=== PATIENT | male | born 2000 | race African-American/Black ===

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

== ENCOUNTER 2023-04-17 18:06 | Emergency (ER) | payer BC, OTHER ==
[2023-04-17 18:19] VITALS: BP 123/68; O2SAT 100
--- NOTE | 2023-04-17 18:34 | ED Physician Documentation ---
PD HPI LOWER EXT INJURY - Stated complaint Stated Complaint: L FOOT BLISTERS - Chief complaint Chief Complaint: Ext Problem - History obtained from History obtained from: Patient - Additional information Additional information: Otherwise healthy 23-year-old gentleman works at [employer]. 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 Over the last couple weeks he has developed a blister on his left heel that is not healing and he would like to know how to take care of it. PD PAST MEDICAL HISTORY - Past Medical History Respiratory: Asthma - Past Surgical History Past Surgical History: Yes Ortho: Rotator cuff repair - Present Medications Home Medications: Ambulatory Orders Medication Instructions Recorded Confirmed Albuterol Sulfate [Albuterol 1 inhaler INH Q3HR PRN 10/16/14 04/17/23 Sulfate Hfa] - Allergies Allergies/Adverse Reactions: Allergies Allergy/AdvReac Type Severity Reaction Status Date / Time nuts Allergy Respiratory Uncoded 04/17/23 18:18 - Social History Does the pt smoke?: No Smoking Status: Never smoker Does the pt drink ETOH?: No Does the pt have substance abuse?: No - Immunizations Immunizations are current?: Yes Immunizations: TDAP current <10years - POLST Patient has POLST: No PD ED PE NORMAL - Vitals Vital signs reviewed: Yes - General General: Alert and oriented X 3, No acute distress - HEENT HEENT: PERRL, EOMI - Extremities Extremities: Other (There is a 5 mm blister on the back of the left heel without signs of infection.) - Neuro Neuro: Alert and oriented X 3, Normal speech Results - Vitals Vitals: Vital Signs - 24 hr 04/17/23 18:14 Temperature 37.2 C Heart Rate 79 Respiratory 15 Rate Blood Pressure 123/68 O2 Saturation 100 Oxygen O2 Source Room air PD Medical Decision Making - ED course ED course: 23-year-old gentleman with noninfected blister in the back of his foot due to poor fitting footwear and a job that requires him to walk a lot. Conservative measures and footwear changes were advised. Departure - Departure Disposition: 01 Home, Self Care Clinical Impression: Blister of foot, left Qualifiers: Encounter type: initial encounter Qualified Code(s): S90.822A - Blister (nonthermal), left foot, initial encounter Condition: Good Record reviewed to determine appropriate education?: Yes Instructions: SOFÍA Ruiz Comments: You go to the drugstore of your choice and get moleskin which is a protective bandage type that you can put over the affected area after soap and water and keep that on while you are at work. You should wear more comfortable shoes as much as possible. Follow-up with your doctor in a week for recheck. Return for new or worsening symptoms. Forms: PCP List, Activity restrictions Discharge Date/Time: 04/17/23 18:42
== END 2023-04-17 18:42 | disposition home or self-care (01) ==
LOC: ED 18:06
DX: S90.822A Blister (nonthermal), left foot, initial encounter (principal); X58.XXXA Exposure to other specified factors, initial encounter; Y93.01 Activity, walking, marching and hiking; Y92.59 Other trade areas as the place of occurrence of the external cause; Y99.0 Civilian activity done for income or pay
CPT/HCPCS: 99281; 99282

== ENCOUNTER 2023-06-09 08:37 | Emergency (ER) | payer BC ==
[2023-06-09 08:55] VITALS: BP 127/65; O2SAT 99
[2023-06-09 10:29] LABS: B. PARAPERTUSSIS- RESP PCR PAN NOT DETECTED; B. PERTUSSIS- RESP PCR PANEL NOT DETECTED; C. PNEUMONIAE- RESP PCR PANEL NOT DETECTED; CORONAVIRUS 229E-RESP PCR NOT DETECTED; CORONAVIRUS HKU1-RESP PCR NOT DETECTED; CORONAVIRUS NL63-RESP PCR NOT DETECTED; CORONAVIRUS OC43-RESP PCR NOT DETECTED; HUMAN METAPNEUMOVIRUS NOT DETECTED; INFLUENZA A- RESP PCR PANEL NOT DETECTED; INFLUENZA B - RESP PCR PANEL NOT DETECTED; M. PNEUMONIAE- RESP PCR PANEL NOT DETECTED; PARAINFLUENZA VIRUS 1 NOT DETECTED; PARAINFLUENZA VIRUS 2 NOT DETECTED; PARAINFLUENZA VIRUS 3 NOT DETECTED; PARAINFLUENZA VIRUS 4 NOT DETECTED; RHINOVIRUS/ENTEROVIRUS NOT DETECTED; RSV- RESP PCR PANEL NOT DETECTED; SARS-CoV-2 -RESP PCR PANEL NOT DETECTED
--- NOTE | 2023-06-09 10:39 | ED Physician Documentation ---
PD HPI HEENT - Stated complaint Stated Complaint: H/A,SOA - Chief complaint Chief Complaint: Heent - History obtained from History obtained from: Patient - Additional information Additional information: 23-year-old gentleman with history of mild asthma has been sick for a few days with sore throat, body aches and headache. He denies measured fevers. He has been exposed to COVID but tested himself at home and it was negative. PD PAST MEDICAL HISTORY - Past Medical History Past Medical History: Yes Respiratory: Asthma - Past Surgical History Past Surgical History: Yes Ortho: Rotator cuff repair - Present Medications Home Medications: Ambulatory Orders Medication Instructions Recorded Confirmed Albuterol Sulfate [Albuterol 1 inhaler INH Q3HR PRN 10/16/14 04/17/23 Sulfate Hfa] - Allergies Allergies/Adverse Reactions: Allergies Allergy/AdvReac Type Severity Reaction Status Date / Time nuts Allergy Respiratory Uncoded 06/09/23 08:51 - Social History Does the pt smoke?: No Smoking Status: Never smoker Does the pt drink ETOH?: No Does the pt have substance abuse?: No - Immunizations Immunizations are current?: Yes Immunizations: TDAP current <10years - POLST Patient has POLST: No PD ED PE NORMAL - Vitals Vital signs reviewed: Yes - General General: Alert and oriented X 3, No acute distress - HEENT HEENT: PERRL, EOMI, Ears normal, Other (Tonsils are red and swollen with mild exudates and there is mild anterior cervical and adenopathy.) - Neck Neck: Supple, no meningeal sign, No bony TTP - Cardiac Cardiac: RRR, No murmur - Respiratory Respiratory: No respiratory distress, Clear bilaterally - Abdomen Abdomen: Non tender - Neuro Neuro: Alert and oriented X 3, Normal speech Results - Vitals Vitals: Vital Signs - 24 hr 06/09/23 08:48 Temperature 36.9 C Heart Rate 73 Respiratory 20 Rate Blood Pressure 127/65 O2 Saturation 99 Oxygen O2 Source Room air - Labs Labs: Laboratory Tests 06/09/23 06/09/23 08:55 10:35 Nasal Adenovirus (PCR) NOT DETECTED Nasal B. parapertussis DNA (PCR) NOT DETECTED Nasal Coronavir 229E PCR NOT DETECTED Nasal Coronavir HKU1 PCR NOT DETECTED Nasal Coronavir NL63 PCR NOT DETECTED Nasal Coronavir OC43 PCR NOT DETECTED Nasal Enterovir/Rhinovir PCR NOT DETECTED Nasal Influenza B PCR NOT DETECTED Nasal Influenza A PCR NOT DETECTED Nasal Parainfluen 1 PCR NOT DETECTED Nasal Parainfluen 2 PCR NOT DETECTED Nasal Parainfluen 3 PCR NOT DETECTED Nasal Parainfluen 4 PCR NOT DETECTED Nasal RSV (PCR) NOT DETECTED Nasal B.pertussis DNA PCR NOT DETECTED Nasal C.pneumoniae (PCR) NOT DETECTED Kurt Human Metapneumo PCR NOT DETECTED Nasal M.pneumoniae (PCR) NOT DETECTED Nasal SARS-CoV-2 (PCR) NOT DETECTED Group A Strep Rapid Negative PD Medical Decision Making - ED course ED course: 23-year-old gentleman with with what sounds like a viral syndrome. Benign exam. BioFire panel and strep swabs negative. Conservative care advised. Departure - Departure Disposition: 01 Home, Self Care Clinical Impression: Viral pharyngitis Condition: Good Record reviewed to determine appropriate education?: Yes Instructions: ED Pharyngitis Viral Report Pending Comments: Rapid strep and COVID test are negative. We will perform a throat culture and call you if there is a bacterial isolate needing antibiotics. Until then drink plenty of fluids and you can take ibuprofen for the pain. Return if worse. Forms: PCP List, Activity restrictions Discharge Date/Time: 06/09/23 11:20
[2023-06-09 10:52] LABS: RAPID STREP SCREEN Negative (Negative)
== END 2023-06-09 11:20 | disposition home or self-care (01) ==
LOC: ED 08:37
DX: J02.9 Acute pharyngitis, unspecified (principal); Z20.822 Contact with and (suspected) exposure to COVID-19
CPT/HCPCS: 87070; 87430; 87633; 99283

== ENCOUNTER 2023-07-10 17:19 | Emergency (ER) | payer BC ==
--- NOTE | 2023-07-10 17:35 | ED Physician Documentation ---
PD HPI HEENT - Stated complaint Stated Complaint: RT EYE PX - Chief complaint Chief Complaint: Heent - History obtained from History obtained from: Patient (2 to 3 days of right eye itchiness and drainage. No visual deficit. No eye problems. Does not wear glasses or contacts.) PD PAST MEDICAL HISTORY - Past Medical History Past Medical History: Yes Respiratory: Asthma - Past Surgical History Past Surgical History: Yes Ortho: Rotator cuff repair - Present Medications Home Medications: Ambulatory Orders Medication Instructions Recorded Confirmed Albuterol Sulfate [Albuterol 1 inhaler INH Q3HR PRN 10/16/14 04/17/23 Sulfate Hfa] Erythromycin Base [Erythromycin 1 appful OP 5XD 7 Days #1 gm 07/10/23 Ophthalmic Ointment] - Allergies Allergies/Adverse Reactions: Allergies Allergy/AdvReac Type Severity Reaction Status Date / Time nuts Allergy Respiratory Uncoded 07/10/23 17:21 - Social History Does the pt smoke?: No Smoking Status: Never smoker Does the pt drink ETOH?: No Does the pt have substance abuse?: No - Immunizations Immunizations are current?: Yes Immunizations: TDAP current <10years - POLST Patient has POLST: No PD ED PE NORMAL - Vitals Vital signs reviewed: Yes - General General: Alert and oriented X 3, No acute distress - HEENT HEENT: PERRL, EOMI, Other (Purulent conjunctivitis right eye, soft globes) - Neuro Neuro: Alert and oriented X 3, Normal speech Results - Vitals Vitals: Vital Signs - 24 hr 07/10/23 17:21 Temperature 36.5 C Heart Rate 100 Respiratory 16 Rate Blood Pressure 150/78 H O2 Saturation 100 Oxygen O2 Source Room air Departure - Departure Disposition: 01 Home, Self Care Clinical Impression: Conjunctivitis Qualifiers: Conjunctivitis type: acute Acute conjunctivitis type: unspecified Laterality: right Qualified Code(s): H10.31 - Unspecified acute conjunctivitis, right eye Condition: Good Record reviewed to determine appropriate education?: Yes Instructions: ED Conjunctivitis Nonspecific Follow-Up: Abebe Mendez MD [Provider Admit Priv/Credential] - Prescriptions: Erythromycin Base [Erythromycin Ophthalmic Ointment] 1 appful OP 5XD 7 Days #1 gm Comments: Follow-up with the eye doctor if not better at the end of the weekend. Return for new or worsening symptoms. Forms: PCP List, Activity restrictions
[2023-07-10 17:45] VITALS: BP 150/72; O2SAT 98
== END 2023-07-10 17:40 | disposition home or self-care (01) ==
LOC: ED 17:19
DX: H10.31 Unspecified acute conjunctivitis, right eye (principal)
CPT/HCPCS: 99282; 99283

== ENCOUNTER 2023-09-11 09:45 | Emergency (ER) | payer OTHER, BC ==
--- NOTE | 2023-09-11 10:38 | XRAY Report ---
PROCEDURE: Knee 4+V LT INDICATIONS: Trauma TECHNIQUE: 4 views of the knee(s) were acquired. COMPARISON: None. FINDINGS: Bones: No fractures or dislocations. No suspicious bony lesions. Soft tissues: No knee joint effusion. No suspicious soft tissue calcifications or masses. IMPRESSION: No acute fracture. No osseous lesion. If symptoms and/or clinical suspicion for pathology continue, f urther assessment with repeat plain films, or advanced imaging (e.g., CT, MRI, or bone scan) is recom mended for further assessment. Reviewed by: Malika Byers MD on 09/11/2023 10:37 AM [facility] Approved by: Malika Byers MD on 09/11/2023 10:37 AM [facility] Station ID: [id number]
--- NOTE | 2023-09-11 11:23 | ED Physician Documentation ---
PD HPI LOWER EXT INJURY - Stated complaint Stated Complaint: LT KNEE PX - Chief complaint Chief Complaint: Trauma Ext - History obtained from History obtained from: Patient - Additional information Additional information: Patient is a 23-year-old male with no significant past medical history presenting for evaluation of left knee pain. 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 Denies fall or direct trauma. Has been taking it easy which has been helping but he is post to go back to work and reports that walking worsens his pains. Denies prior injuries To the leg. Has not had this evaluated yet. Review of Systems Cardiac: denies: Chest pain / pressure Respiratory: denies: Dyspnea Musculoskeletal: reports: Joint pain Neurologic: denies: Head injury PD PAST MEDICAL HISTORY - Past Medical History Past Medical History: Yes Respiratory: Asthma - Past Surgical History Past Surgical History: Yes Ortho: Rotator cuff repair, Shoulder arthroplasty - Present Medications Home Medications: Ambulatory Orders Medication Instructions Recorded Confirmed Albuterol Sulfate [Albuterol 1 inhaler INH Q3HR PRN 10/16/14 09/11/23 Sulfate Hfa] - Allergies Allergies/Adverse Reactions: Allergies Allergy/AdvReac Type Severity Reaction Status Date / Time nuts Allergy Respiratory Uncoded 09/11/23 10:00 - Social History Does the pt smoke?: No Smoking Status: Never smoker Does the pt drink ETOH?: No Does the pt have substance abuse?: No - Immunizations Immunizations are current?: Yes Immunizations: TDAP current <10years - POLST Patient has POLST: No PD ED PE NORMAL - General General: Alert and oriented X 3, No acute distress, Well developed/nourished - HEENT HEENT: Atraumatic, Moist mucous membranes, Pharynx benign - Neck Neck: Supple, no meningeal sign - Cardiac Cardiac: Strong equal pulses - Respiratory Respiratory: No respiratory distress - Extremities Extremities: No deformity, No edema, No calf tenderness / cord, Other (Pain on range of motion of left knee but able to extend and flex fully, no bony tenderness or swelling, no erythema, distal pulses intact) - Neuro Neuro: Alert and oriented X 3, No motor deficit, No sensory deficit, Normal speech Results - Vitals Vitals: Vital Signs - 24 hr 09/11/23 09/11/23 09:57 12:00 Temperature 37.1 C Heart Rate 84 78 Respiratory 16 15 Rate Blood Pressure 134/64 H 133/74 H O2 Saturation 100 99 Oxygen O2 Source Room air PD Medical Decision Making - ED course ED course: Patient with left knee pain after injury at work. Neurovascular intact. No swelling or signs of infection. X-ray was obtained which I reviewed I see no fracture or dislocation. Patient given knee immobilizer and crutches. Counseled on continued supportive care as well as need for follow-up and advised on concerning symptoms to return for. Departure - Departure Disposition: Home, Self Care Clinical Impression: Left knee injury Condition: Stable Instructions: ED Knee Pain [facility] Comments: Your x-ray does not show a fracture or dislocation. We will place him into a knee immobilizer and have use crutches for the next several days. You will need follow-up with your primary care provider. In the meanwhile we will place you on restrictions at work. FINDINGS: Bones: No fractures or dislocations. No suspicious bony lesions. Soft tissues: No knee joint effusion. No suspicious soft tissue calcifications or masses. IMPRESSION: No acute fracture. No osseous lesion. If symptoms and/or clinical suspicion for pathology continue, further assessment with repeat plain films, or advanced imaging (e.g., CT, MRI, or bone scan) is recommended for further assessment. Forms: PCP List, Activity restrictions Discharge Date/Time: 09/11/23 12:00
[2023-09-11 12:29] VITALS: BP 133/74; O2SAT 99
== END 2023-09-11 12:00 | disposition home or self-care (01) ==
LOC: ED 09:45
DX: S89.92XA Unspecified injury of left lower leg, initial encounter (principal); X50.3XXA Overexertion from repetitive movements, initial encounter; Y92.89 Other specified places as the place of occurrence of the external cause; Y99.0 Civilian activity done for income or pay; J45.909 Unspecified asthma, uncomplicated
CPT/HCPCS: 1040M; 73564; 99283

== ENCOUNTER 2023-12-24 10:09 | Emergency (ER) | payer BC, OTHER ==
[2023-12-24 10:30] VITALS: O2SAT 98
[2023-12-24 10:57] LABS: RAPID STREP SCREEN Negative (Negative)
--- NOTE | 2023-12-24 11:12 | ED Physician Documentation ---
PD HPI URI - Stated complaint Stated Complaint: SORE THROAT, FEVER, HOT FLASHES - Chief complaint Chief Complaint: Heent - History obtained from History obtained from: Patient - History of Present Illness Timing - onset: How many days ago (few) Timing duration: Days (few) Timing details: Gradual onset, Still present Associated symptoms: Fever, Chills, Sore throat, Swollen nodes. No: Nasal congestion, Dry cough Contributing factors: No: Sick contact Similar symptoms before: Has not had sx before Review of Systems Constitutional: reports: Fever, Chills, Myalgias Nose: denies: Rhinorrhea / runny nose, Congestion Respiratory: denies: Cough PD PAST MEDICAL HISTORY - Past Medical History Past Medical History: Yes Cardiovascular: None Respiratory: Asthma Neuro: None Endocrine/Autoimmune: None GI: None : None HEENT: None Psych: None Musculoskeletal: None Derm: None - Past Surgical History Past Surgical History: Yes Ortho: Rotator cuff repair, Shoulder arthroplasty - Present Medications Home Medications: Ambulatory Orders Medication Instructions Recorded Confirmed Albuterol Sulfate [Albuterol 1 inhaler INH Q3HR PRN 10/16/14 12/24/23 Sulfate Hfa] HYDROcod/ACETAM 5/325 [Sharon 5/325] 1 ea PO Q6H PRN #18 tablet 12/24/23 cephALEXin [Keflex] 1,000 mg PO BID 6 Days #24 cap 12/24/23 dexAMETHasone [Decadron] 4 mg PO DAILY #5 tablet 12/24/23 - Allergies Allergies/Adverse Reactions: Allergies Allergy/AdvReac Type Severity Reaction Status Date / Time nuts Allergy Respiratory Uncoded 12/24/23 10:20 - Social History Does the pt smoke?: No Smoking Status: Never smoker Does the pt drink ETOH?: No Does the pt have substance abuse?: No Substance Use and Type: Marijuana - Immunizations Immunizations are current?: Yes Immunizations: TDAP current <10years - POLST Patient has POLST: No PD ED PE NORMAL - Vitals Vital signs reviewed: Yes - General General: Alert and oriented X 3, No acute distress, Well developed/nourished - HEENT HEENT: Ears normal, Moist mucous membranes. No: Pharynx benign (tonsillar redness with some exudate but right side with some swelling and redness of mucosa around and lateral to the tonsils. No uvular deviation. Pt with slight hoarseness of voice with talking and winces with swallowing. ) - Neck Neck: Supple, no meningeal sign, Other (mild anterior adenopathy with tender. ) Results - Vitals Vitals: Oxygen O2 Source Room air - Labs Labs: Microbiology 12/24/23 10:30 Group A Strep Throat Culture - Preliminary Throat CULTURE IN PROGRESS. RESULTS TO FOLLOW. Laboratory Tests 12/24/23 12/24/23 10:30 10:30 Nasal Adenovirus (PCR) NOT DETECTED Nasal B. parapertussis DNA (PCR) NOT DETECTED Nasal Coronavir 229E PCR NOT DETECTED Nasal Coronavir HKU1 PCR NOT DETECTED Nasal Coronavir NL63 PCR NOT DETECTED Nasal Coronavir OC43 PCR NOT DETECTED Nasal Enterovir/Rhinovir PCR NOT DETECTED Nasal Influenza B PCR NOT DETECTED Nasal Influenza A PCR NOT DETECTED Nasal Parainfluen 1 PCR NOT DETECTED Nasal Parainfluen 2 PCR NOT DETECTED Nasal Parainfluen 3 PCR NOT DETECTED Nasal Parainfluen 4 PCR NOT DETECTED Nasal RSV (PCR) NOT DETECTED Nasal B.pertussis DNA PCR NOT DETECTED Nasal C.pneumoniae (PCR) NOT DETECTED Kurt Human Metapneumo PCR NOT DETECTED Nasal M.pneumoniae (PCR) NOT DETECTED Nasal SARS-CoV-2 (PCR) NOT DETECTED Group A Strep Rapid Negative PD Medical Decision Making - ED course Complexity details: reviewed results (neg PCR for viral, and neg rapid strep. Clinically is bacterial peritonsillar.), considered differential (does not have general URI symptoms but more focused on tonsils, with clinically having some peritonsillar edema/swelling. No fluctuance. ), d/w patient Departure - Departure Disposition: 01 Home, Self Care Clinical Impression: Peritonsillar cellulitis Condition: Stable Record reviewed to determine appropriate education?: Yes Instructions: ED Peritonsillar Infec Abx No I andD Prescriptions: dexAMETHasone [Decadron] 4 mg PO DAILY #5 tablet cephALEXin [Keflex] 1,000 mg PO BID 6 Days #24 cap HYDROcod/ACETAM 5/325 [Sharon 5/325] 1 ea PO Q6H PRN #18 tablet PRN Reason: Pain Comments: This does look clinically to be a bacterial infection in the tissue around the tonsils. Your rapid strep test is negative. We are doing a throat culture and will result in a couple of days. Your viral nasal PCR panel test is negative for the major viruses. This gives more credence to that area for likely bacterial cause for your symptoms. I would treat it with antibiotics as well as a steroid anti-inflammatory. Stay well-hydrated. Add Tylenol 500 to 650 mg every 4-6 hours if needed for pain. I also prescribed hydrocodone/acetaminophen if needed for worse pain in the short- term. I would anticipate improvement of your symptoms through the day and into tomorrow and tapering over 2 to 3 days with resolution by 3 to 5 days. Recheck if not better in that timeframe return if worsening. I sent your prescription to preferred pharmacy. I am prescribing a short course of narcotic pain medication for you. These are potentially dangerous and addictive medications that should be used carefully. These medications may constipate you. Take an [id number] stool softener such as docusate twice daily with plenty of water while taking these medications. If you go 24 hours without a bowel movement, take [id number] MiraLAX, per package instructions. Do not drink or drive while taking these medications. If you received narcotic or sedating medications while in the emergency department do not drive for 24 hours. Store this medication in a safe, secure place and out of reach of children. It is a violation of federal law to give or sell this medication to another person or to use in a manner other than prescribed. The ED will not refill narcotic prescriptions, including prescriptions lost or stolen. You can dispose of unwanted medications at the [facility]'s office or at several pharmacies such as [facility]. Forms: PCP List, Activity restrictions Discharge Date/Time: 12/24/23 12:35
[2023-12-24 11:38] LABS: CORONAVIRUS 229E-RESP PCR NOT DETECTED; CORONAVIRUS HKU1-RESP PCR NOT DETECTED; CORONAVIRUS NL63-RESP PCR NOT DETECTED; CORONAVIRUS OC43-RESP PCR NOT DETECTED; SARS-CoV-2 -RESP PCR PANEL NOT DETECTED
[2023-12-24 11:39] LABS: B. PARAPERTUSSIS- RESP PCR PAN NOT DETECTED; B. PERTUSSIS- RESP PCR PANEL NOT DETECTED; C. PNEUMONIAE- RESP PCR PANEL NOT DETECTED; HUMAN METAPNEUMOVIRUS NOT DETECTED; INFLUENZA A- RESP PCR PANEL NOT DETECTED; INFLUENZA B - RESP PCR PANEL NOT DETECTED; M. PNEUMONIAE- RESP PCR PANEL NOT DETECTED; PARAINFLUENZA VIRUS 1 NOT DETECTED; PARAINFLUENZA VIRUS 2 NOT DETECTED; PARAINFLUENZA VIRUS 3 NOT DETECTED; PARAINFLUENZA VIRUS 4 NOT DETECTED; RHINOVIRUS/ENTEROVIRUS NOT DETECTED; RSV- RESP PCR PANEL NOT DETECTED
[2023-12-24] MEDS: cephALEXin 250 MG CAPSULE PO STA (11:42)
[2023-12-24] MEDS: ACETAMINOPHEN 500 MG TABLET PO STA (11:42)
[2023-12-24] MEDS: IBUPROFEN 600 MG TABLET PO STA (11:43)
[2023-12-24] MEDS: dexAMETHasone 4 MG TABLET PO STA (11:43)
[2023-12-24 12:41] VITALS: BP 113/59
== END 2023-12-24 12:35 | disposition home or self-care (01) ==
LOC: ED 10:09
DX: J36 Peritonsillar abscess (principal); J45.909 Unspecified asthma, uncomplicated; Z79.899 Other long term (current) drug therapy
CPT/HCPCS: 87070; 87430; 87633; 99283; A9270; J8540